=== PATIENT | male | born 1995 | race Caucasian/White ===

== ENCOUNTER → 2025-02-26 | Day surgery (SDC) | payer OTHER ==
[~2025-02-26] MED LIST: FAMOTIDINE20 MG PO; FENTANYL CITRATE/PF 100MCG/2 ML INJ ONE; HYOSCYAMINE0.375 MG PO; IMODIUM A-D2 M2 PO; LIDOCAINE HCL 2% LOCAL INJ 5 ML SDV VIAL INJ ONE; PROPOFOL IV EMULSION 10 MG/ML 20 ML VIAL ONE; PROPOFOL IV EMULSION 50 ML IV ONE
[2025-02-26] MEDS: LACTATED RINGER'S 1,000 ML ONE (11:05)
[2025-02-26 12:06] VITALS: TEMP 99
[2025-02-26 12:35] VITALS: BP 121/86; PULSE 80; RESP 16; O2SAT 95
[2025-02-26 12:54] LABS: CDIFF AG QUIK CHEK NEGATIVE (NEGATIVE); CDIFF TOX QUIK CHEK NEGATIVE (NEGATIVE)
[2025-03-03 09:13] LABS: ENDOMYSIAL ANTIBODIES, IGA Negative (Negative)
[2025-03-03 13:49] LABS: TISSUE TRANSGLUTAMINASE IGA AB <2 U/mL (0-3)
== END | disposition home or self-care (01) ==
LOC: OR 09:55 → EDSEX 12:30
PROVIDERS: ATTEND Internal Medicine Gastroenterology
DX: K21.00 Gastro-esophageal reflux disease with esophagitis, without bleeding (principal); K29.50 Unspecified chronic gastritis without bleeding; D12.3 Benign neoplasm of transverse colon; K64.8 Other hemorrhoids; K58.0 Irritable bowel syndrome with diarrhea; K62.89 Other specified diseases of anus and rectum; E66.01 Morbid (severe) obesity due to excess calories; Z68.38 Body mass index [BMI] 38.0-38.9, adult; Z79.899 Other long term (current) drug therapy
CPT/HCPCS: 43239; 45380; 82784; 83516; 83630; 83993; 86140; 86256; 87045; 87177; 87324; 87328; 87449; J2003; J2470; J2704 ×2; J3010; J7121; 45378; 45385